=== PATIENT | female | born 2005 | race Two or more races ===

== ENCOUNTER 2023-09-22 17:01 | Outpatient (REF) | payer MEDICAID, SELFPAY ==
[2023-09-23 05:24] LABS: CT PCR NOT DETECTED (Not Detect.); NG PCR NOT DETECTED (Not Detect.)
== END 2023-09-22 17:02 | disposition home or self-care (01) ==
LOC: HO.HHCLNP 17:01
PROVIDERS: Visit Provider Advanced Practice Midwife
DX: Z11.3 Encounter for screening for infections with a predominantly sexual mode of transmission (principal)
CPT/HCPCS: 0353U